=== PATIENT | male | born 1945 | race Caucasian/White ===

== ENCOUNTER 2019-06-17 22:56 | Observation (INO) | payer MEDICARE, OTHER ==
[~2019-06-17] VITALS: Ht 170.2 cm; Wt 73.5 kg
[2019-06-17 23:03] VITALS: BP 122/59
--- NOTE | 2019-06-17 23:05 | NUR ---
Rec'd from EMS by stretcher. Awake and alert. Anxious. Dry, hacky cough noted. Lungs clear anteriorly and laterally. #20 gauge to right AC infusing NS.
--- NOTE | 2019-06-17 23:19 | NUR ---
@ bedside. EKG done.
--- NOTE | 2019-06-17 23:20 | PCM.EKG ---
[facility] Test Date: 2019-06-17 Test Time: 23:17:59 Pat Name: MATEUSZ ESPINOZA Department: Room: 341 Gender: M Class A Truck Driver: HOLLAND : 1945 Requested By: KOLE MARTINEZ Order Number: [id number] Reading MD: Jersey Gillespie Measurements Intervals [place] Rate: 104 P: 67 NC: 138 QRS: 79 QRSD: 69 T: 77 QT: 350 QTc: 461 Interpretive Statements Sinus tachycardia No previous ECG available for comparison Electronically Signed On 07-21-2019 15:44:30 TIRE AND TUBE REPAIRER by Jersey Gillespie Please click the below link to view image of tracing.
[2019-06-17] MEDS ORDERED: NS 1000ML 1,000 ML IV SCH (23:30)
[2019-06-17 23:32] LABS: BASOPHIL % 0.1 % (0.0-0.2); EOSINOPHIL % 0.1 % (0.0-5.0); LYMPHOCYTES # 0.6 10^3/uL (1.0-4.8); LYMPHOCYTES % 3.4 % (24.0-44.0); MEAN CORP HGB 29.8 pg (26-34); MONOCYTES # 0.6 10^3/uL (0.3-0.8); MONOCYTES % 3.3 % (5.0-12.0); NEUTROPHIL # 15.4 10^3/uL (1.8-7.7); NEUTROPHILS % 92.7 % (41.0-85.0); RED CELL DISTRIBUTION WIDTH 14.1 % (11.5-14.5)
[2019-06-17] MEDS ORDERED: NS 1000ML 1,000 ML ONE (23:42)
--- NOTE | 2019-06-17 23:52 | DIREP ---
PROCEDURE:CHEST 2 VIEWS COMPARISON:[facility], CR, XRAY CHEST 2 VWS, 01/26/2019, 04:06 PM. INDICATIONS:Fever, cough, dyspnea, AMS, h/o COPD FINDINGS: LUNGS/PLEURA:No significant pulmonary parenchymal abnormalities. No effusions. VASCULATURE:Normal. Unremarkable pulmonary vasculature. CARDIAC:Normal. No cardiac silhouette abnormality or cardiomegaly. MEDIASTINUM:Calcified aorta. BONES:Mild diffuse degenerative changes. OTHER:Cardiac leads. CONCLUSION:No acute pulmonary process. Dictated by: Lea Lam M.D. on 06/17/2019 at 11:51 PM
--- NOTE | 2019-06-17 23:57 | NUR ---
CRITICAL LAB D-DIMER 1.27 MD MICHELLE NOTIFIED.
[2019-06-17 23:59] LABS: ALANINE AMINOTRANSFERASE(ML) 30 U/L (12-78); ALKALINE PHOSPHATASE 65 U/L (50-136); ASPARTATE AMINO TRANSFERASE 34 U/L (0-35); CALCIUM 8.2 mg/dL (8.4-10.5); CARBON DIOXIDE 26.3 mmol/L (20.0-32); GLUCOSE 107 mg/dL (70-110)
[2019-06-18] MEDS ORDERED: ATIVAN IV STA
[2019-06-18] MEDS ORDERED: DUO 0.5-3(2.5) MG/3 ML IH STA (00:01)
--- NOTE | 2019-06-18 00:04 | ER.PDOC ---
General Chief Complaint: Cough/Congestion Stated Complaint: COUGH,FEVER Time seen by MD: 23:56 Source: patient, family Exam Limitations: no limitations History of Present Illness Initial Comments Patient comes to the ED, brought in via EMS from home where he lives with his . He states that he has COPD, well managed at home w/ long-acting MDIs, steroid, and albuterol rescue usually 2-3 times per day. Noticed over the last day or so that he had increased dyspnea on exertion, we akness, altered mental status, not at his baseline per family. Positive fever, but no chest pressure, heaviness, no nausea, vomiting, diarrhea, constipation, diaphoresis. Chronic dysuria and troubles voiding as he has distal urethral stricture followed by Urology (last visit < 3 mos ago). Denies changes to his medicines, recent travel or antibiotic usage. Denies other somatic complaints. Allergies: Coded Allergies: aspartame (Unverified Allergy, Unknown, 09/29/17) venlafaxine (Unverified Allergy, Unknown, 09/29/17) Past Medical History Medical History: COPD Surgical History: no surgical history Social History Drug Use: none Review of Systems All Other Systems: Reviewed and Negative Physical Exam General Appearance: No Apparent Distress Comments General: uncooperative, anxious, squirming around in bed trying to get off the gurney, requiring constant re-direction HEENT: normocephalic, atraumatic, EOMI, sclerae anicteric without injection, oropharynx : pink and moist Neck: supple, no rigidity noted or appreciated CV: increased rate, regular rhythm, S1, S2, no rubs, clicks, or murmurs appreciated Lungs: end-expiratory wheezes heard all lung mchugh, increased work of breathing, positive retractions, no rhonchi appreciated Abdomen: soft, non-tender, non-distended, normoactive bowel sounds, no rebound, no guarding Back: no focal findings noted Extremities: no clubbing, cyanosis, or edema Skin: warm, dry, intact, cap refill < 2 seconds Neuro: no focal deficits noted, CN 2-12 gross intact, moves all extremities well Psych: anxious/paranoid affect Results/Orders Results/Orders Orders - KOLE MARTINEZ MD Cbc With Auto Diff (06/17/19 23:10) Comprehensive Metabolic Panel (06/17/19 23:10) Creatine Kinase (06/17/19 23:10) Probnp B-Type Ice Cream Dispenser (06/17/19 23:10) Troponin I (06/17/19 23:10) D-Dimer (06/17/19 23:10) Blood Culture (06/17/19 23:10) Ekg-Routine (06/17/19 23:10) Lactic Acid(Ml) (06/17/19 23:10) Cardiac Monitoring (06/17/19 23:10) 0.9 % Sodium Chloride (Ns 1000ml) (06/17/19 23:30) Xr Chest 2v (06/17/19 23:13) 0.9 % Sodium Chloride (Ns 1000ml) (06/17/19 23:42) Lorazepam (Ativan) (06/18/19 00:00) Ceftriaxone Sodium (Rocephin) (06/18/19 00:30) Azithromycin (Zithromax) (06/18/19 00:30) Ipratropium/Albuterol Sulfate (Duo 0.5-3 (06/18/19 00:01) Cont. Monitor O2 (06/18/19 00:02) Oxygen By Face Mask(Notify Rt) (06/18/19 00:02) 0.9 % Sodium Chloride (Ns 100ml) (06/18/19 00:12) Ceftriaxone Sodium (Rocephin) (06/18/19 00:13) 0.9 % Sodium Chloride (Ns 250ml) (06/18/19 00:13) Lorazepam (Ativan) (06/18/19 00:14) Ipratropium/Albuterol Sulfate (Duo 0.5-3 (06/18/19 00:15) Methylprednisolone Sod Succ (Solu-Medrol (06/18/19 00:16) Rt O2 Per Hour (06/18/19 00:18) Influenza A&B (06/18/19 00:29) Vital Signs Date Time Temp Pulse Resp B/P (MAP) Pulse Ox O2 Delivery O2 Flow Rate FiO2 06/18/19 00:25 105 20 92 06/18/19 00:20 105 20 92 06/17/19 23:03 99.2 93 24 06/17/19 23:03 99.2 114 24 122/59 (80) 95 Room Air 12/6/19 22:57 99.2 114 24 95 Administered Medications Medications (Trade) Dose Ordered Sig/Federica Route PRN Reason Start Time Stop Time Status Last Admin Dose Admin Azithromycin 500 mg/Sodium Chloride 250 ml @ 175 mls/hr OT ONCE IV 06/18/19 00:30 06/18/19 01:55 06/18/19 00:38 175 MLS/HR Ceftriaxone Sodium 1 gm/ Sodium Chloride 100 ml @ 100 mls/hr OT ONCE IV 06/18/19 00:30 06/18/19 01:29 06/18/19 00:36 100 MLS/HR Lorazepam (Ativan) 1 mg STAT STAT IV 06/18/19 00:00 06/18/19 00:01 DC 06/18/19 00:27 1 MG Methylprednisolone Sodium Succinate (Solu-Medrol) 125 mg STAT STAT IV 06/18/19 00:16 06/18/19 00:17 DC 06/18/19 00:48 125 MG Sodium Chloride 1,000 ml @ 1,000 mls/hr Q1H IV 06/17/19 23:30 07/17/19 23:29 06/17/19 23:48 1,000 MLS/HR Laboratory Tests Test 06/17/19 23:24 White Blood Count 16.6 10^3/uL (4.5-11.0) H Red Blood Count 3.56 10^6/uL (4.50-5.90) L Hemoglobin 10.6 g/dL (13.9-16.3) L Hematocrit 32.8 % (37.0-53.0) L Mean Corpuscular Volume 92.1 fL (78-100) Mean Corpuscular Hemoglobin 29.8 pg (26-34) Mean Corpuscular Hemoglobin Concent 32.3 g/dL (33-37) L Red Cell Distribution Width 14.1 % (11.5-14.5) Platelet Count 291 10^3/uL (150-400) Mean Platelet Volume 9.5 fL (7.8-11.0) Neutrophils (%) (Auto) 92.7 % (41.0-85.0) *H Lymphocytes (%) (Auto) 3.4 % (24.0-44.0) *L Monocytes (%) (Auto) 3.3 % (5.0-12.0) L Neutrophils # (Auto) 15.4 10^3/uL (1.8-7.7) H Lymphocytes # (Auto) 0.6 10^3/uL (1.0-4.8) L Monocytes # (Auto) 0.6 10^3/uL (0.3-0.8) Absolute Immature Granulocyte (auto 0.06 10^3 u/L (0-2) Immature Granulocytes % 0.40 % (0.00-0.50) Eosinophils % 0.1 % (0.0-5.0) Basophils % 0.1 % (0.0-0.2) Basophils # 0.0 10^3/uL (0.0-0.1) Eosinophil Count 0.0 10^3/uL (0.0-0.2) D-Dimer 1.27 mg/L (0.19-0.49) *H Sodium Level 139 mmol/L (132-145) Potassium Level 3.6 mmol/L (3.6-5.2) Chloride Level 106.0 mmol/L (96-109) Carbon Dioxide Level 26.3 mmol/L (20.0-32) Anion Gap 10.3 Blood Urea Nitrogen 23 mg/dL (7-18) H Creatinine 1.46 mg/dL (0.59-1.40) H Estimated GFR () 57.1 (>/=60) BUN/Creatinine Ratio 15.0 Glucose Level 107 mg/dL (70-110) Lactic Acid Level 1.8 mmol/L (0.50-2.00) Calcium Level 8.2 mg/dL (8.4-10.5) L Total Bilirubin 0.4 mg/dL (0.2-1.0) Aspartate Amino Transferase (AST) 34 U/L (0-35) Alanine Aminotransferase (ALT) 30 U/L (12-78) Alkaline Phosphatase 65 U/L (50-136) Total Creatine Kinase 452 U/L (39-308) H Troponin I < 0.02 ng/mL (0.00-0.05) Pro-B-Type Natriuretic Peptide 87 pg/mL (0-125) Total Protein 6.3 g/dL (6.4-8.2) L Albumin 2.9 g/dL (3.4-5.0) L Globulin 3.4 Progress Progress Patient findings consistent with AECOPD, pneumonia, fever, bacteremia, sepsis, viral syndrome, or other. 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 Baseline labs, EKG, lactic acid, blood cultures obtained and given one litre b olus normal saline. Lactic acid noted to be normal and sent for CXR which also showed no acute abnormalities. Patient given albuterol/ipratropium neb treatment and labs started to show leukocytosis of 16K w/ left shift in the 93% range, suggestive of demargination and possible infection. No recent admissions to hospital and started empirically on ceftriaxone, azithromycin to cover potential CAP. Single dose methylprednisolone and influenza swab obtained. Patient is super anxious requiring much, MUCH re-direction and extensive discussion w/ SO, son in the room and given lorazepam. Per conv w/ Dr Paul Suarez ([place] [facility]), admitted upstairs Obs / Tele for serial nebs, steroids, further evaluation and management. Departure Time of Disposition: 00:36 Disposition: ADMITTED INPATIENT Impression: Primary Impression: COPD exacerbation Additional Impressions: Hypoxemia Failure of outpatient treatment Condition: Stable Referrals: ESSENCE HUNT SHEARING SHED WORKER (PCP) PRIMARY CARE PROVIDER Duration or Time Spent with Pa: 30 Problem Qualifiers KOLE MARTINEZ MD Jun 18, 2019 00:04
[2019-06-18] MEDS ORDERED: NS 100ML 100 ML IV ONE (00:12)
[2019-06-18] MEDS ORDERED: NS 250ML 250 ML IV ONE (00:13)
[2019-06-18] MEDS ORDERED: ROCEPHIN ONE (00:13)
[2019-06-18] MEDS ORDERED: ATIVAN ONE (00:14)
[2019-06-18] MEDS ORDERED: DUO 0.5-3(2.5) MG/3 ML IH ONE (00:15)
[2019-06-18] MEDS ORDERED: SOLU-MEDROL IV STA (00:16)
[2019-06-18] MEDS ORDERED: ZITHROMAX 500 MG in NS 250ML 250 ML IV ONE (00:30)
[2019-06-18] MEDS ORDERED: ROCEPHIN 1 GM in NS 100ML 100 ML IV ONE (00:30)
--- NOTE | 2019-06-18 00:35 | NUR ---
DR NARANJO EDP ON PHONE WITH JATIN FOR ADMISSION
[2019-06-18] MEDS ORDERED: SOLU-MEDROL ONE (00:39)
[2019-06-18] MEDS ORDERED: OMEP20CA13 PO (01:13)
[2019-06-18] MEDS ORDERED: LOSA50TA14 PO (01:13)
[2019-06-18] MEDS ORDERED: CYCL10TA2 PO (01:13)
[2019-06-18] MEDS ORDERED: MELO15TA24 PO (01:13)
[2019-06-18] MEDS ORDERED: BUDE10.2 IH (01:13)
[2019-06-18] MEDS ORDERED: TIOT18CA IH (01:13)
[2019-06-18] MEDS ORDERED: TRAZ-131 PO (01:13)
[2019-06-18] MEDS ORDERED: SIMV40TA20 PO (01:13)
[2019-06-18] MEDS ORDERED: PRAZ2CAP2 PO (01:13)
[2019-06-18] MEDS ORDERED: FLUO20CA8 PO (01:13)
[2019-06-18] MEDS ORDERED: ALBU6.7H8 IH (01:13)
[2019-06-18 01:20] VITALS: BP 114/60
[2019-06-18 04:20] VITALS: BP 121/67
[2019-06-18 05:47] LABS: BAND NEUTROPHILS 6 % (2-6); BASOPHIL 1 % (0-2); EOSINOPHIL 1 % (1-4); LYMPHOCYTE 5 % (25-36); MONOCYTE 3 % (3-9); SEGMENTED NEUTROPHILS 84 % (31-76)
[2019-06-18] MEDS ORDERED: POTASSIUM CHLORIDE PO STA (10:55)
[2019-06-18] MEDS ORDERED: LASIX IV STA (10:55)
[2019-06-18] MEDS ORDERED: SYMBICORT 160-4.5 MCG INHALER IH SCH (11:00)
[2019-06-18 11:27] VITALS: BP 140/75
[2019-06-18] MEDS ORDERED: VENTOLIN IH SCH (13:00)
[2019-06-18] MEDS ORDERED: FURO-80 PO (13:15)
[2019-06-18 14:05] VITALS: BP 140/75
--- NOTE | 2019-06-18 14:20 | HPH ---
ADMIT DATE: 06/18/2019 CHIEF COMPLAINT: Cough. HISTORY OF PRESENT ILLNESS: This is a 73-year-old male with past medical history significant for, 1. COPD. 2. Hypercholesterolemia. 3. Hypertension. 4. Low back pain. 5. Depression, who came to the hospital ER for evaluation due to shortness of breath and cough. The patient stated that his cough has been persistent for the past 2 weeks and he has been given several courses of steroid and he has not been making any progress. The patient also stated that he has been taking a lot of nonsteroidal anti-inflammatory medications to help with his low back pain and he has been having difficulty lying back because of the cough and shortness of breath. The patient was evaluated in the Emergency Room, was given steroid and IV fluids and he was also given Rocephin and Zithromax as a treatment of possibility of COPD exacerbation. The patient was admitted to my service for further evaluation and treatment. PAST MEDICAL HISTORY: Significant for: 1. Posttraumatic stress syndrome/depression. 2. Chronic obstructive pulmonary disease. 3. Low back pain. 4. Hypercholesterolemia. HOME MEDICATIONS: The patient takes the following medications at home: 1. Albuterol 2 puffs q.i.d. 2. Symbicort 1 inhalation b.i.d. 3. Flexeril 1 tablet t.i.d. 4. Fluoxetine 20 mg 1 capsule daily. 5. Losartan 50 mg 1 tablet daily. 6. Omeprazole 20 mg daily. 7. Prazosin 2 mg at bedtime. 8. Simvastatin 40 mg half a tablet daily. 9. Spiriva 1 inhalation daily. 10. Trazodone 100 mg at bedtime. 11. Meloxicam 15 mg daily. SOCIAL HISTORY: The patient lives with his . He does not smoke, but he is an ex-smoker, stopped smoking in 1998. No ETOH abuse or drug use. FAMILY HISTORY: Reviewed and negative. ALLERGY: PATIENT IS ALLERGIC TO __ AND EFFEXOR. REVIEW OF SYSTEMS: Fourteen systems reviewed with the patient, all were negative except for what has been mentioned above. PHYSICAL EXAMINATION: VITAL SIGNS: Temperature 99.2, pulse 114, respiration 24, blood pressure 122/59, O2 sat 95% on room air. HEENT: Pupils reactive. Conjunctivae intact. Sclerae are anicteric. Nares patent. Earlobes intact. Throat clear. NECK: No JVD. No thyromegaly, no bruits, no lymphadenopathy, no masses, no tracheal deviation. HEART: Regular rhythm. No murmur, no gallop. CHEST: Mild bilateral crackles on both lungs. ABDOMEN: Soft. No hepatosplenomegaly, no organomegaly. Bowel sounds active, no tenderness. EXTREMITIES: No cyanosis, clubbing or edema. LABORATORY DATA: CBC: White count 16.6, hemoglobin 10.6, hematocrit 32.8, and platelet 291. Chemistry: Sodium 139, potassium 3.6, chloride 106, CO2 26.3, anion gap 10.3, BUN 23, creatinine 1.46, the calcium 8.2. The influenza A is negative. Influenza B is negative. The chest x-ray is unremarkable. DIAGNOSES: 1. Chronic obstructive pulmonary disease with exacerbation. The patient seems to be having chronic obstructive pulmonary disease, but there is no acute exacerbation. I think it is more fluid retention due to his chronic renal insufficiency. 2. Chronic renal insufficiency, stage 3. 3. Posttraumatic stress disorder. We will continue his medications: 4. Hypercholesterolemia. Continue his medications. MANAGEMENT: I am going to give the patient IV Lasix 1 dose and reevaluate if the patient responds to this IV Lasix, it will confirm the diagnosis of chronic kidney insufficiency, stage 3 and the patient would be considered to have a stable chronic obstructive pulmonary disease without exacerbation and also fluid retention secondary to chronic kidney disease, aggravated by nonsteroidal anti-inflammatory medication and excessive steroid use. PS, the patient also was noticed to have elevated white count, which could be easily attributed to the steroid. We will follow the patient and treat accordingly. LULY STEINER MD DR: LUZ MARIA/suzette JOB# [id number]
[2019-06-18] MEDS ORDERED: ATROVENT IH SCH (15:00)
[2019-06-18] MEDS ORDERED: FLEXERIL PO SCH (15:00)
--- NOTE | 2019-06-18 15:05 | NUR ---
Discharge EDUCATION SESSION HELD WITH PATIENT AND FAMILY PRIOR TO DISCHARGE IN THE FORUM OF VERBAL AND WRITTEN MATERIAL. SESSION INCLUDED FOLLOW UP APPOINTMENT, WHEN TO SEEK IMMEDIATE MEDICAL CARE, PRESCRIPTIONS WELL OTHER DISCHARGE INFORMATION. PATIENT VERBALIZED UNDERSTANDING NO QUESTIONS OR CONCERNS PRESENTED AT THIS TIME. PATIENT LEFT THE UNIT VIA W/C NO ACUTE DISTRESS NOTED AT THIS TIME. PATIENT LEFT VIA PRIVATE AUTO. RELINQUISHED CARE AT THIS TIME.
--- NOTE | 2019-06-18 19:30 | DSH ---
DATE OF DISCHARGE: 06/18/2019 HISTORY OF PRESENT ILLNESS: This was a short admission for observation for this 73-year-old who came to the ER with a 2-week history of shortness of breath and cough. The patient's evaluation revealed stable COPD without exacerbation, and at the same time, the patient was found to have chronic kidney disease, aggravated by the use of nonsteroidal anti-inflammatory medications for his low back pain. The patient was given one dose of Lasix and he diuresed a large amount of urine, and I explained to the the need to monitor his weight and stop taking nonsteroidal anti-inflammatory medications and use the Lasix p.r.n. The patient's symptoms improved instantly after the one dose of Lasix, which included the cough as well as the shortness of breath, and today, the patient is stable, no complaints. PHYSICAL EXAMINATION: VITAL SIGNS: Temperature 98.7, pulse 95, respirations 18, blood pressure 140/75, O2 sat 96% on room air. CARDIOVASCULAR: Regular rhythm. CHEST: Clear. ABDOMEN: Soft. EXTREMITIES: No cyanosis, clubbing, or edema. DISCHARGE INSTRUCTIONS: The patient will be discharged home and follow up with his primary care physician. He was given Lasix 40 mg p.o. to be used as needed. I explained that to the and the son and to the patient himself. LULY STEINER MD DR: LUZ MARIA/suzette JOB# [id number]
[2019-06-18] MEDS ORDERED: MINIPRESS PO SCH (21:00)
[2019-06-18] MEDS ORDERED: DESYREL PO SCH (21:00)
[2019-06-18] MEDS ORDERED: LIPITOR PO SCH (21:00)
[2019-06-19] MEDS ORDERED: PROZAC PO SCH (09:00)
[2019-06-19] MEDS ORDERED: PROTONIX PO SCH (09:00)
[2019-06-19] MEDS ORDERED: COZAAR PO SCH (09:00)
--- NOTE | 2019-06-23 13:07 | NUR ---
ALBUTEROL UNIT DOSE WAS GIVEN INSTEAD OF DUONEBCatia SPEARS SAWSMITH Addendum: 06/23/19 at 1308 by Chayito Yap RRT RT Amended: Links added.
== END 2019-06-18 14:05 | disposition home or self-care (01) ==
LOC: ER 22:56 → EDBD 22:56 → EDBEDREQ 06-18 00:39 → EDBEDREQSVC 06-18 00:39 → MS 06-18 00:39
PROVIDERS: ADMIT Internal Medicine; ATTEND Internal Medicine
DX: J44.1 Chronic obstructive pulmonary disease with (acute) exacerbation (principal); I12.9 Hypertensive chronic kidney disease with stage 1 through stage 4 chronic kidney disease, or unspecified chronic kidney disease; N18.3 Chronic kidney disease, stage 3 (moderate); E78.00 Pure hypercholesterolemia, unspecified; F32.9 Major depressive disorder, single episode, unspecified; N35.919 Unspecified urethral stricture, male, unspecified site; F43.10 Post-traumatic stress disorder, unspecified; R09.02 Hypoxemia; Z87.891 Personal history of nicotine dependence; Z79.899 Other long term (current) drug therapy
CPT/HCPCS: 36415; 71046; 80053; 82550; 83605; 83880; 84484; 85025; 85379; 87040 ×2; 87804 ×2; 93005; 94640 ×2; 96365; 96375; 99284; G0378 ×13; J0456; J0696 ×2; J1940; J2060; J2930; J7030; J7050 ×4; J7613; J7620

== ENCOUNTER 2019-10-02 12:17 | Emergency (ER) | payer OTHER ==
[~2019-10-02] VITALS: Ht 170.2 cm; Wt 73.5 kg
[~2019-10-02 12:17] MED LIST: ALBU6.7H8 IH; BUDE10.2 IH; CYCL10TA2 PO; FLUO20CA23 PO; FURO-80 PO; LOSA50TA14 PO; MELO15TA24 PO; OMEP20CA19 PO; PRAZ2CAP2 PO; SIMV40TA20 PO; TIOT18CA IH; TRAZ-168 PO
[2019-10-02 12:25] VITALS: BP 115/64
[2019-10-02 12:36] VITALS: BP 115/64
[2019-10-02] MEDS ORDERED: TORADOL IM STA (13:00)
[2019-10-02] MEDS ORDERED: DECADRON IM STA (13:00)
--- NOTE | 2019-10-02 13:05 | ER.PDOC ---
General Chief Complaint: Neck/Upper back Pain Stated Complaint: UPPER SPINE PAIN Time seen by MD: 12:50 Source: patient Exam Limitations: no limitations History of Present Illness Initial Comments Pt states [facility] is [facility] and is wanting something for pain today. Timing/Duration: just prior to arrival Prior symptoms/Treatment: Similar symptoms previous Allergies: Coded Allergies: aspartame (Unverified Allergy, Unknown, 09/29/17) venlafaxine (Unverified Allergy, Unknown, 09/29/17) Home Meds Active Scripts Furosemide (LASIX) 40 Mg Tablet, 40 MG PO DAILY24 for 30 Days, 2 Refills Prov:LULY STEINER MD 06/18/19 Reported Medications Losartan Potassium (LOSARTAN POTASSIUM) 50 Mg Tablet, 1 TAB PO DAILY, #30 TAB 5 Refills 06/18/19 Cyclobenzaprine Hcl (FLEXERIL) 10 Mg Tablet, 1 TAB PO TID, #90 TAB 06/18/19 Albuterol Sulfate (PROVENTIL HFA) 6.7 Gm Hfa.aer.ad, 2 PUFF IH QID, #1 INHALER 3 Refills 06/18/19 Tiotropium [place] (SPIRIVA) 18 Mcg Cap.w.dev, 1 CAP IH DAILY, #30 CAP 3 Refills 06/18/19 Budesonide/Formoterol Fumarate (SYMBICORT 160-4.5 MCG INHALER) 10.2 Gm Hfa.aer.ad, 2 PUFF IH BID, #10.6 GRAM 3 Refills 06/18/19 Omeprazole (OMEPRAZOLE) 20 Mg Capsule.dr, 1 CAP PO DAILY, #30 CAP 5 Refills 06/18/19 Simvastatin (SIMVASTATIN) 40 Mg Tablet, 0.5 TAB PO HS, #30 TAB 5 Refills 06/18/19 Fluoxetine Hcl (FLUOXETINE HCL) 20 Mg Capsule, 1 CAP PO DAILY, #90 CAP 1 Refill 06/18/19 Prazosin Hcl (PRAZOSIN HCL) 2 Mg Capsule, 1 CAP PO HS, #30 CAP 2 Refills 06/18/19 Trazodone Hcl (TRAZODONE HCL) 100 Mg Tablet, 1 TAB PO HS, #30 TAB 1 Refill 06/18/19 Past Medical History Medical History: COPD, other Surgical History: tonsillectomy Social History Alcohol Use: none Drug Use: none Review of Systems Constitutional: no symptoms reported EENTM: no symptoms reported Respiratory: no symptoms reported Cardiovascular: no symptoms reported Gastrointestinal: no symptoms reported Genitourinary: no symptoms reported Musculoskeletal: neck pain (this is a chronic condition currently being treated at [facility] Pt unable to make appt due to COVID outbreak) Skin: no symptoms reported Psychiatric/Neurological: no symptoms reported Physical Exam General Appearance: Mild Distress HEENT: PERRL/EOMI, Normal ENT Inspection, TMs Normal, Pharynx Normal Neck: Limited Range of Motion, Muscle Spasm, Painful Range of Motion Cardiovascular/Respiratory: Regular Rate, Rhythm, No M/R/G, Normal Peripheral Pulses, No JVD, Normal Breath Sounds, No Respiratory Distress Gastrointestinal: Normal Bowel Sounds Back: Normal Inspection, No CVA Tenderness Neuro/Psych: Alert, supervisor photostat nml/symmetrical, mood/effect nml, No Motor/Sensory Deficits, Relexes nml Skin: Normal Color, Warm/Dry Results/Orders Results/Orders Orders - MANUEL ELMORE NP Dexamethasone Sodium Phosphate (Decadron (10/02/19 13:00) Ketorolac Tromethamine (Toradol) (10/02/19 13:00) Vital Signs Date Time Temp Pulse Resp B/P (MAP) Pulse Ox O2 Delivery O2 Flow Rate FiO2 10/02/19 12:36 98.5 80 18 115/64 (81) 95 10/02/19 12:36 98.5 80 18 10/02/19 12:25 98.5 80 18 95 Departure Time of Disposition: 13:19 Disposition: 01 HOME, SELF-CARE Impression: Primary Impression: Neck pain Condition: Stable Patient Instructions: RICE - Routine Care for Injuries, [id number] Referrals: ESSENCE HUNT TRUCK DRIVING INSTRUCTOR (PCP) PRIMARY CARE PROVIDER Additional Instructions: Follow up with your Primary Care Provider in the next 1-2 days If symptoms become worse return to the ER Tramadol 50mg Q 4-6 hours for pain Cyclobenzaprine 10mg TID as needed for muscle spasm Duration or Time Spent with Pa: 20 min MANUEL ELMORE NP Oct 02, 2019 13:05
[2019-10-02 13:24] VITALS: BP 116/64
== END 2019-10-02 13:30 | disposition home or self-care (01) ==
LOC: ER 12:17
DX: M54.2 Cervicalgia (principal); J44.9 Chronic obstructive pulmonary disease, unspecified; Z79.899 Other long term (current) drug therapy; Z88.8 Allergy status to other drugs, medicaments and biological substances
CPT/HCPCS: 96372 ×2; 99284; J1100; J1885; 99283; J2550

== ENCOUNTER → 2020-02-09 | Outpatient (CLI) ==
--- NOTE | 2020-02-09 13:05 | DIREP ---
PROCEDURE:CHEST 2 VIEWS COMPARISON:[facility], CR, XRAY CHEST 2 VWS, 06/17/2019, 11:15 PM. [facility], CR, XRAY CHEST 2 VWS, 01/26/2019, 04:06 PM. INDICATIONS:J44.1 COPD FINDINGS: LUNGS/PLEURA:Right lower lobe infiltrate with scattered air bronchograms. Possible trace right pleural effusion. No pneumothorax. Mildly hyperinflated lung mchugh chronic interstitial changes. VASCULATURE:Unremarkable pulmonary vasculature. Calcified aortic arch. CARDIAC:Normal. No cardiac silhouette abnormality or cardiomegaly. MEDIASTINUM:Normal. No visible mass or adenopathy. BONES:Degenerative change without evidence of acute osseus abnormality. OTHER:Negative. CONCLUSION: 1. Right lower lobe infiltrate, concerning for evolving pneumonia. 2. Stable changes related to COPD/emphysema. Dictated by: Anatoly Rebolledo MD on 02/09/2020 at 01:02 PM
== END | disposition home or self-care (01) ==
LOC: LAB 11:40
PROVIDERS: ATTEND Internal Medicine
DX: J44.1 Chronic obstructive pulmonary disease with (acute) exacerbation (principal); J18.9 Pneumonia, unspecified organism
CPT/HCPCS: 71046

== ENCOUNTER 2020-05-16 17:28 | Emergency (ER) | payer OTHER ==
[~2020-05-16] VITALS: Ht 167.6 cm; Wt 70.3 kg
[2020-05-16 17:46] VITALS: BP 143/59
--- NOTE | 2020-05-16 17:51 | NUR ---
ARRIVAL PATIENT ARRIVED TO ED6 AMBULATORY, C/O OF URINARY RETENTION FOR THE PAST COUPLE OF DAYS, STATES PATIENT HAS BEEN CONSTIPATED AND SHE DID GIVE HIM A STOOL SOFTNER, DECIDED TO BRING HIM TO THE ED FOR EVAL.
--- NOTE | 2020-05-16 18:05 | ER.PDOC ---
General Chief Complaint: Male Stated Complaint: MALE Time seen by MD: 17:57 Source: patient, family ( relates most history) Exam Limitations: clinical condition (Pt has PTSD and is a poor historian) History of Present Illness Initial Comments Patient c/o difficulty voiding x 3-4 days with only dribbling urination. When he does void, it smells strongly. He denies hematuria or fever. Timing/Duration: other (3-4 days) Severity/Quality: moderate, fullness (urge to void, but can only void dribbles) Location: suprapubic Associated Symptoms: Urgency, Hesitancy, Small amounts Sexual History: Non-contributory Prior symptoms/Treatment: Similar symptoms previous (longstanding history of intermittent recurrent urethral stricture--last cleared just before his neck surgery in February) Allergies: Coded Allergies: aspartame (Unverified Allergy, Unknown, 09/29/17) venlafaxine (Unverified Allergy, Unknown, 09/29/17) Home Meds Active Scripts Furosemide (LASIX) 40 Mg Tablet, 40 MG PO DAILY24 for 30 Days, 2 Refills Prov:LULY STEINER MD 06/18/19 Reported Medications Losartan Potassium (LOSARTAN POTASSIUM) 50 Mg Tablet, 1 TAB PO DAILY, #30 TAB 5 Refills 06/18/19 Cyclobenzaprine Hcl (FLEXERIL) 10 Mg Tablet, 1 TAB PO TID, #90 TAB 06/18/19 Albuterol Sulfate (PROVENTIL HFA) 6.7 Gm Hfa.aer.ad, 2 PUFF IH QID, #1 INHALER 3 Refills 06/18/19 Tiotropium [place] (SPIRIVA) 18 Mcg Cap.w.dev, 1 CAP IH DAILY, #30 CAP 3 Refills 06/18/19 Budesonide/Formoterol Fumarate (SYMBICORT 160-4.5 MCG INHALER) 10.2 Gm Hfa.aer.ad, 2 PUFF IH BID, #10.6 GRAM 3 Refills 06/18/19 Omeprazole (OMEPRAZOLE) 20 Mg Capsule.dr, 1 CAP PO DAILY, #30 CAP 5 Refills 06/18/19 Simvastatin (SIMVASTATIN) 40 Mg Tablet, 0.5 TAB PO HS, #30 TAB 5 Refills 06/18/19 Fluoxetine Hcl (FLUOXETINE HCL) 20 Mg Capsule, 1 CAP PO DAILY, #90 CAP 1 Refill 06/18/19 Prazosin Hcl (PRAZOSIN HCL) 2 Mg Capsule, 1 CAP PO HS, #30 CAP 2 Refills 06/18/19 Trazodone Hcl (TRAZODONE HCL) 100 Mg Tablet, 1 TAB PO HS, #30 TAB 1 Refill 06/18/19 Past Medical History Medical History: GERD, hypertension, other (urethral stricture, chronic, recurrent) Surgical History: neck Family History Significant Family History: no pertinent family hx Social History Smoking: non-smoker Alcohol Use: none Drug Use: none Review of Systems Constitutional: no symptoms reported EENTM: no symptoms reported Respiratory: no symptoms reported Cardiovascular: no symptoms reported Gastrointestinal: no symptoms reported Genitourinary: frequency, urgency, other (dribbles small amounts) Musculoskeletal: no symptoms reported Skin: no symptoms reported Psychiatric/Neurological: no symptoms reported All Other Systems: Reviewed and Negative Physical Exam General Appearance: No Apparent Distress, WD/WN Cardiovascular/Respiratory: Regular Rate, Rhythm, Normal Breath Sounds, No Respiratory Distress Abdomen: Soft, Tenderness (suprapubic), Distended Bladder Extremities: Non-Tender, No Pedal Edema, No Calf Tenderness Neurologic/Psychiatric: Alert, Normal Mood/Affect, Oriented x 3 Skin: Normal Color, Warm/Dry Results/Orders Results/Orders Orders - ETHEL ESPINOSA DO Cbc With Auto Diff (05/16/20 18:05) Comprehensive Metabolic Panel (05/16/20 18:05) Urinalysis (05/16/20 18:05) Saline Lock (05/16/20 18:05) Bladder Scan (05/16/20 18:05) Ceftriaxone Sodium (Rocephin) (05/16/20 18:43) Blood Culture (05/16/20 18:43) 0.9 % Sodium Chloride (Ns 1000ml) (05/16/20 18:46) Urine Culture (05/16/20 18:05) 0.9 % Sodium Chloride (Ns 100ml) (05/16/20 19:21) 0.9 % Sodium Chloride (Ns 1000ml) (05/16/20 19:21) Ceftriaxone Sodium (Rocephin) (05/16/20 19:22) Lactic Acid(Ml) (05/16/20 19:54) Vital Signs Date Time Temp Pulse Resp B/P (MAP) Pulse Ox O2 Delivery O2 Flow Rate FiO2 05/16/20 17:46 98.4 113 20 95 05/16/20 17:46 98.4 113 20 143/59 (87) 95 Room Air 05/16/20 17:46 98.4 113 20 Administered Medications Medications (Trade) Dose Ordered Sig/Federica Route PRN Reason Start Time Stop Time Status Last Admin Dose Admin Ceftriaxone Sodium 1000 mg/ Sodium Chloride 100 ml @ 100 mls/hr STAT STAT IV 05/16/20 18:43 05/16/20 19:42 DC 05/16/20 19:29 100 MLS/HR Sodium Chloride 1,000 ml @ 0 mls/hr Q0M STAT IV 05/16/20 18:46 05/16/20 18:48 DC 05/16/20 19:29 0 MLS/HR Laboratory Tests Test 05/16/20 18:15 05/16/20 18:30 05/16/20 20:20 White Blood Count 24.1 10^3/uL (4.5-11.0) H Red Blood Count 3.06 10^6/uL (4.50-5.90) L Hemoglobin 7.9 g/dL (13.9-16.3) L Hematocrit 25.3 % (37.0-53.0) L Mean Corpuscular Volume 82.7 fL (78-100) Mean Corpuscular Hemoglobin 25.8 pg (26-34) L Mean Corpuscular Hemoglobin Concent 31.2 g/dL (33-36.5) L Red Cell Distribution Width 16.1 % (11.5-14.5) H Platelet Count 291 10^3/uL (150-400) Mean Platelet Volume 9.7 fL (7.8-11.0) Neutrophils (%) (Auto) 92.9 % (41.0-85.0) *H Lymphocytes (%) (Auto) 3.6 % (24.0-44.0) *L Monocytes (%) (Auto) 2.8 % (5.0-12.0) L Neutrophils # (Auto) 22.4 10^3/uL (1.8-7.7) H Lymphocytes # (Auto) 0.88 10^3/uL1 (1.0-4.8) L Monocytes # (Auto) 0.7 10^3/uL (0.3-0.8) Absolute Immature Granulocyte (auto 0.12 10^3 u/L (0-2) Absolute Eosinophils (auto) 0.0 10^3/uL (0.0-0.2) Immature Granulocytes % 0.50 % (0.00-0.50) Eosinophils % 0.0 % (0.0-5.0) Basophils % 0.2 % (0.0-0.2) Basophils # 0.0 10^3/uL (0.0-0.1) Sodium Level 136 mmol/L (132-145) Potassium Level 3.7 mmol/L (3.6-5.2) Chloride Level 101.0 mmol/L (96-109) Carbon Dioxide Level 24.4 mmol/L (20.0-32) Anion Gap 14.3 Blood Urea Nitrogen 18 mg/dL (7-18) Creatinine 1.61 mg/dL (0.59-1.40) H Estimated GFR () 50.9 (>/=60) Est GFR (CKD-EPI)(Non-Afr [place]) 42.0 (>/=60) BUN/Creatinine Ratio 11.0 Glucose Level 149 mg/dL (70-110) H Calcium Level 8.8 mg/dL (8.4-10.5) Total Bilirubin 0.7 mg/dL (0.2-1.0) Aspartate Amino Transferase (AST) 21 U/L (0-35) Alanine Aminotransferase (ALT) 15 U/L (12-78) Alkaline Phosphatase 66 U/L (50-136) Total Protein 7.0 g/dL (6.4-8.2) Albumin 3.4 g/dL (3.4-5.0) Globulin 3.6 Albumin/Globulin Ratio 0.944 Urine Collection Type VOID Urine Color YELLOW (YELLOW) Urine Appearance CLOUDY (CLEAR) H Urine Bilirubin NEGATIVE MG/DL (NEGATIVE) Urine Ketones 15 mg/dL (NEGATIVE) H Urine Specific [place] 1.020 (1.005-1.035) Urine pH 7.5 (5.0-6.0) Urine Protein 100 mg/dL (NEGATIVE) H Urine Urobilinogen NORMAL (NEGATIVE) Urine Nitrate POSITIVE (NEGATAIVE) H Urine Leukocyte Esterase SMALL (NEGATIVE) Urine Blood TRACE (NEGATIVE) Urine RBC 0-2 RBC/HPF (NONE SEEN) Urine WBC 5-10 WBC/HPF (0-2) H Urine Squamous Epithelial Cells FEW #/HPF (FEW) Urine Bacteria MANY (NONE SEEN) H Urine Glucose NORMAL (NEGATIVE) Lactic Acid Level 0.8 mmol/L (0.5-1.9) Progress Progress patient voided 40 cc urine followed by bladder scan that saw 44ccs maximum; WBC is 24K, predominantly neutrophils; blood cultures ordered, followed by rocephin 1 gm IV; UA sees [place] infection; lactate negative; patient wishes to discharge home with oral antibiotics; we discussed returning if he is worse, has fever, or for any other concerns. ER DEPART Departure Time of Disposition: 20:55 Disposition: 01 HOME, SELF-CARE Impression: Primary Impression: UTI (urinary tract infection) Additional Impressions: Leukocytosis Bladder spasms Condition: Improved Patient Instructions: Urinary Tract Infection Referrals: ESSENCE [facility] (PCP) PRIMARY CARE PROVIDER Additional Instructions: Follow up with your doctor next week for reevaluation. Return to ER if symptoms worsen, or for any emergent concerns. Take antibiotics as prescribed until all gone. Take OTC AZO per package directions as needed for bladder spasms. Duration or Time Spent with Pa: 20 min Problem Qualifiers Primary Impression: UTI (urinary tract infection) Urinary tract infection type: acute cystitis Hematuria presence: without hematuria Qualified Codes: N30.00 - Acute cystitis without hematuria Additional Impressions: Leukocytosis Leukocytosis type: bandemia Qualified Codes: D72.825 - Bandemia ETHEL ESPINOSA DO May 16, 2020 18:05
[2020-05-16 18:19] LABS: BASOPHIL % 0.2 % (0.0-0.2); LYMPHOCYTES # 0.88 10^3/uL1 (1.0-4.8); LYMPHOCYTES % 3.6 % (24.0-44.0); MEAN CORP HGB 25.8 pg (26-34); MONOCYTES # 0.7 10^3/uL (0.3-0.8); MONOCYTES % 2.8 % (5.0-12.0); NEUTROPHIL # 22.4 10^3/uL (1.8-7.7); NEUTROPHILS % 92.9 % (41.0-85.0); PLATELET COUNT 291 10^3/uL (150-400); RED CELL DISTRIBUTION WIDTH 16.1 % (11.5-14.5)
[2020-05-16 18:37] LABS: CALCIUM 8.8 mg/dL (8.4-10.5); CARBON DIOXIDE 24.4 mmol/L (20.0-32)
[2020-05-16] MEDS ORDERED: ROCEPHIN 1,000 MG in NS 100ML 100 ML IV STA (18:43)
[2020-05-16] MEDS ORDERED: NS 1000ML 1,000 ML STA (18:46)
[2020-05-16 19:12] LABS: APPEARANCE,URINE CLOUDY (CLEAR); BILIRUBIN,URINE NEGATIVE (NEGATIVE); UA COLOR YELLOW (YELLOW); UROBILINOGEN,URINE NORMAL (NEGATIVE)
[2020-05-16] MEDS ORDERED: NS 1000ML 1,000 ML ONE (19:21)
[2020-05-16] MEDS ORDERED: NS 100ML 100 ML IV ONE (19:21)
[2020-05-16] MEDS ORDERED: ROCEPHIN ONE (19:22)
[2020-05-16] MEDS ORDERED: PHENAZOPYRIDINE HCL PO STA (20:55)
[2020-05-16 21:00] LABS: LYMPHOCYTE 3 % (25-36); MONOCYTE 2 % (3-9); SEGMENTED NEUTROPHILS 95 % (31-76)
== END 2020-05-16 21:49 | disposition home or self-care (01) ==
LOC: ER 17:28
DX: N30.01 Acute cystitis with hematuria (principal); D72.825 Bandemia; I10 Essential (primary) hypertension; N32.89 Other specified disorders of bladder; Z79.51 Long term (current) use of inhaled steroids; Z79.899 Other long term (current) drug therapy
CPT/HCPCS: 36415; 80053; 81000; 83605; 85025; 87040 ×2; 87077; 87086; 87186; 96365; 99284; J0696 ×2; J7030; J7050 ×2

== ENCOUNTER 2020-07-12 11:44 | Emergency (ER) | payer MEDICARE, OTHER ==
--- NOTE | 2020-07-12 11:48 | NUR ---
ARRIVED PT IN W/C TO ROOM 2 C/C SOB FOR OVER 1 WEEK. PT WEAK, SYNCOPAL EPISODE IN WAITING ROOM PT HAS COPD AND IS ON HOME O2 AT 2LITERS. PT 79 ON ROOM AIR PT PLACED ON 2LITERS OF 02 AND O2 SATS ARE NOW 91%. PT AFEBRILE. WARM DRY
--- NOTE | 2020-07-12 12:12 | PCM.EKG ---
[facility] Test Date: 2020-07-12 Test Time: 12:03:07 Pat Name: MATEUSZ ESPINOZA Department: Room: Gender: M Pivot Maker: CHARO : 1945 Requested By: ASHLIE ALBA Order Number: [id number] Reading MD: Measurements Intervals [place] Rate: 100 P: 35 AL: 129 QRS: 68 QRSD: 66 T: 42 QT: 366 QTc: 473 Interpretive Statements Sinus tachycardia Abnormal R-wave progression, early transition Compared to ECG 06/17/2019 23:17:59 No significant changes Please click the below link to view image of tracing.
[2020-07-12 12:18] LABS: ABG PCO2 29.2 mmHg (35.0-45.0); ABG PH 7.512 (7.350-7.450); BE(B) 0.3 mmol/L (-2.0-2.0); HCO3act 22.9 mmol/L (22.0-26.0); pO2 42.9 mmHg (80.0-100.0)
[2020-07-12 12:26] LABS: BASOPHIL % 0.4 % (0.0-0.2); EOSINOPHIL # 0.2 10^3/uL (0.0-0.2); EOSINOPHIL % 1.8 % (0.0-5.0); LYMPHOCYTES # 0.75 10^3/uL1 (1.0-4.8); LYMPHOCYTES % 9.2 % (24.0-44.0); MEAN CORP HGB 23.2 pg (26-34); MONOCYTES # 0.3 10^3/uL (0.3-0.8); NEUTROPHIL # 6.9 10^3/uL (1.8-7.7); NEUTROPHILS % 84.2 % (41.0-85.0); PLATELET COUNT 331 10^3/uL (150-400); RED CELL DISTRIBUTION WIDTH 17.8 % (11.5-14.5)
[2020-07-12 12:32] VITALS: BP 134/59
--- NOTE | 2020-07-12 12:48 | NUR ---
addy 3.64 aware Addendum: 07/12/20 at [address]morgan montes de oca
[2020-07-12 12:56] LABS: ALANINE AMINOTRANSFERASE(ML) 23 U/L (12-78); ALKALINE PHOSPHATASE 55 U/L (50-136); ASPARTATE AMINO TRANSFERASE 27 U/L (0-35); CALCIUM 8.5 mg/dL (8.4-10.5); CARBON DIOXIDE 27.3 mmol/L (20.0-32); GLUCOSE 149 mg/dL (70-110)
--- NOTE | 2020-07-12 13:01 | DIREP ---
PROCEDURE:CHEST 1 VIEW COMPARISON:[facility], CR, XRAY CHEST 2 VWS, 02/09/2020, 11:56 AM. INDICATIONS:chest pain FINDINGS: LUNGS/PLEURA:Note is made of opacity in the region of the left lower lobe in the lingula adjacent to the left costophrenic angle. Differential diagnosis includes an airspace consolidation or viral infiltrate. The right lung is grossly clear. EKG leads identified. Elevated left hemidiaphragm. VASCULATURE:Normal. Unremarkable pulmonary vasculature. In the visualized portions of the aerated lung, no CHF or pulmonary edema is seen. No effusions identified. No cavitation is seen. CARDIAC:Normal. No cardiac silhouette abnormality or cardiomegaly. MEDIASTINUM:Normal. No visible mass or adenopathy. BONES:Normal. No fracture or visible bony lesion. Cervical spine fusion noted. OTHER:Negative. CONCLUSION:Opacities in the left lower lobe in the region of the lingula and the left costophrenic angle likely represent an infiltrate. Elevated left hemidiaphragm. No CHF or effusions are seen. No cavitation is identified. Dictated by: Ravi Rebolledo MD on 07/12/2020 at 12:56 PM
--- NOTE | 2020-07-12 13:59 | NUR ---
CTA THIS NURSE ASKED DR ALBA ABOUT ORDERS FOR CTA D/T INCREASED D DIMER. DR ALBA STATES HE WANTS TO WAIT UNTIL COVID RESULT IS BACK D/T PT NOT MEETING ANY WELLS CRITIERIA.
--- NOTE | 2020-07-12 14:37 | ER.PDOC ---
General Chief Complaint: Dyspnea/Respdistress Stated Complaint: LOW OXYGEN/COUGH Time seen by MD: 11:48 Source: patient Exam Limitations: no limitations History of Present Illness Initial Comments Pt feels like he has had a flare of his COPD and has not been feeling good for the "past few days". He feels more SOB with exertion for past 2 days. He denies fevers/chills Pulse ox was low at home. He has an oxygen concentrator at home.. Severity: moderate Activities at Onset: rest Prior Episodes/Possible Cause: frequent episodes Modifying Factors: improves with activity, improves with albuterol inhaler, im proves with albuterol nebulizer Associated Symptoms: cough Prior symptoms/Treatment: Similar symptoms previous Allergies: Coded Allergies: aspartame (Unverified Allergy, Unknown, 09/29/17) venlafaxine (Unverified Allergy, Unknown, 09/29/17) Home Meds Active Scripts Furosemide (LASIX) 40 Mg Tablet, 40 MG PO DAILY24 for 30 Days, 2 Refills Prov:LULY STEINER MD 06/18/19 Reported Medications Losartan Potassium (LOSARTAN POTASSIUM) 50 Mg Tablet, 1 TAB PO DAILY, #30 TAB 5 Refills 06/18/19 Cyclobenzaprine Hcl (FLEXERIL) 10 Mg Tablet, 1 TAB PO TID, #90 TAB 06/18/19 Albuterol Sulfate (PROVENTIL HFA) 6.7 Gm Hfa.aer.ad, 2 PUFF IH QID, #1 INHALER 3 Refills 06/18/19 Tiotropium [place] (SPIRIVA) 18 Mcg Cap.w.dev, 1 CAP IH DAILY, #30 CAP 3 Refills 06/18/19 Budesonide/Formoterol Fumarate (SYMBICORT 160-4.5 MCG INHALER) 10.2 Gm Hfa.aer.ad, 2 PUFF IH BID, #10.6 GRAM 3 Refills 06/18/19 Omeprazole (OMEPRAZOLE) 20 Mg Capsule.dr, 1 CAP PO DAILY, #30 CAP 5 Refills 06/18/19 Simvastatin (SIMVASTATIN) 40 Mg Tablet, 0.5 TAB PO HS, #30 TAB 5 Refills 06/18/19 Fluoxetine Hcl (FLUOXETINE HCL) 20 Mg Capsule, 1 CAP PO DAILY, #90 CAP 1 Refill 06/18/19 Prazosin Hcl (PRAZOSIN HCL) 2 Mg Capsule, 1 CAP PO HS, #30 CAP 2 Refills 06/18/19 Trazodone Hcl (TRAZODONE HCL) 100 Mg Tablet, 1 TAB PO HS, #30 TAB 1 Refill 06/18/19 Past Medical History Medical History: COPD, hypertension Surgical History: neck Family History Significant Family History: no pertinent family hx Social History Smoking: quit greater than 1 year Alcohol Use: none Drug Use: none Review of Systems Respiratory: see HPI All Other Systems: Reviewed and Negative Physical Exam General Appearance: No Apparent Distress, WD/WN HEENT: PERRL/EOMI, Normal ENT Inspection, TMs Normal, Pharynx Normal Neck: Non-Tender, Full Range of Motion, Supple, Normal Inspection Respiratory: chest non-tender, normal breath sounds, no respiratory distress, crackles, wheezing (faint wheezing and crackles in left side) Cardiovascular: Normal Peripheral Pulses, Regular Rate, Rhythm, No Edema, No Gallop, No JVD, No Murmur Gastrointestinal: Normal Bowel Sounds, No Organomegaly, No Pulsatile Mass, Non Tender, Soft Extremities: Normal Range of Motion, Non-Tender, Normal Inspection, No Pedal Edema, No Calf Tenderness, Normal Capillary Refill 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 (07/12/20 12:09) Helicobacter Pylori (07/12/20 12:09) D-Dimer (07/12/20 12:09) Xr Chest 1v (07/12/20 12:09) Ekg-Routine (07/12/20 12:09) Arterial Blood Gas (07/12/20 12:09) Influenza A&B (07/12/20 13:09) Covid19 Antigen Tracey Lincoln (07/12/20 13:09) Vital Signs Date Time Temp Pulse Resp B/P (MAP) Pulse Ox O2 Delivery O2 Flow Rate FiO2 07/12/20 12:32 98.5 88 16 79 07/12/20 12:32 98.5 88 16 79 Laboratory Tests Test 07/12/20 12:00 07/12/20 12:06 White Blood Count 8.2 10^3/uL (4.5-11.0) Red Blood Count 3.57 10^6/uL (4.50-5.90) L Hemoglobin 8.3 g/dL (13.9-16.3) L Hematocrit 27.3 % (37.0-53.0) L Mean Corpuscular Volume 76.5 fL (78-100) L Mean Corpuscular Hemoglobin 23.2 pg (26-34) L Mean Corpuscular Hemoglobin Concent 30.4 g/dL (33-36.5) L Red Cell Distribution Width 17.8 % (11.5-14.5) H Platelet Count 331 10^3/uL (150-400) Mean Platelet Volume 10.1 fL (7.8-11.0) Neutrophils (%) (Auto) 84.2 % (41.0-85.0) Lymphocytes (%) (Auto) 9.2 % (24.0-44.0) L Monocytes (%) (Auto) 4.0 % (5.0-12.0) L Neutrophils # (Auto) 6.9 10^3/uL (1.8-7.7) Lymphocytes # (Auto) 0.75 10^3/uL1 (1.0-4.8) L Monocytes # (Auto) 0.3 10^3/uL (0.3-0.8) Absolute Immature Granulocyte (auto 0.03 10^3 u/L (0-2) Absolute Eosinophils (auto) 0.2 10^3/uL (0.0-0.2) Immature Granulocytes % 0.40 % (0.00-0.50) Eosinophils % 1.8 % (0.0-5.0) Basophils % 0.4 % (0.0-0.2) H Basophils # 0.0 10^3/uL (0.0-0.1) Prothrombin Time 11.5 SEC (9.3-11.3) H Prothrombin Time INR (Non-Therap) 1.1 Activated Partial Thromboplast Time 26.0 SEC (24.67-30.72) D-Dimer 3.64 mg/L (0.19-0.49) *H Sodium Level 138 mmol/L (132-145) Potassium Level 3.8 mmol/L (3.6-5.2) Chloride Level 102.0 mmol/L (96-109) Carbon Dioxide Level 27.3 mmol/L (20.0-32) Anion Gap 12.5 Blood Urea Nitrogen 23 mg/dL (7-18) H Creatinine 1.33 mg/dL (0.59-1.40) Estimated GFR () 63.4 (>/=60) Est GFR (CKD-EPI)(Non-Afr [place]) 52.4 (>/=60) BUN/Creatinine Ratio 17.0 Glucose Level 149 mg/dL (70-110) H Calcium Level 8.5 mg/dL (8.4-10.5) Total Bilirubin 0.4 mg/dL (0.2-1.0) Aspartate Amino Transferase (AST) 27 U/L (0-35) Alanine Aminotransferase (ALT) 23 U/L (12-78) Alkaline Phosphatase 55 U/L (50-136) Total Creatine Kinase 116 U/L (39-308) Creatine Kinase MB 0.8 ng/mL (0.5-3.6) Troponin I < 0.02 ng/mL (0.00-0.05) Pro-B-Type Natriuretic Peptide 259 pg/mL (0-450) Total Protein 6.9 g/dL (6.4-8.2) Albumin 2.9 g/dL (3.4-5.0) L Globulin 4.0 Albumin/Globulin Ratio 0.725 Helicobacter pylori Screen NEGATIVE (NEGATIVE) Influenza Type A Antigen NEGATIVE (NEG) Influenza B Immunofluorescence NEGATIVE (NEG) SARS-CoV-2 Antigen (Rapid) NEGATIVE (NEGATIVE) Blood Gas Sample Site RT RADIAL ARTERY Blood pH 7.512 (7.350-7.450) Blood Gas PCO2 29.2 mmHg (35.0-45.0) L Blood Gas PO2 42.9 mmHg (80.0-100.0) L Blood Gas HCO3 22.9 mmol/L (22.0-26.0) Blood Gas Base Excess 0.3 mmol/L (-2.0-2.0) Alpesh Test POSITIVE Arterial Blood Oxygen Saturation 79.4 % (94.0-97.00) L Deoxyhemoglobin 20.5 % (0.0-5.0) H Carboxyhemoglobin 0.4 % (0.0-3.9) Methemoglobin 0.3 % (0.00-5.0) Total Hemoglobin 8.7 % (12.0-17.8) L Total Oxygen Concentration 9.7 % (13.5-17.5) L Oxygen Delivery Method ROOM AIR FiO2 21 % (20-101) Total Carbon Dioxide 23.8 mmol/L (23-27) Progress Progress Pt's labs show a chronic anemia that appears to be an iron def anemia. NML WBC count.Chem are all OK CXR shows a infiltrate of the left lingula. D-Dimer is elevated. However, he is Covid neg and his Well's criteria is "0". ABG shows chronic hypoxia with acute resp alkalosis. However pt is not in extremes and wants to go home. ER DEPART Departure Time of Disposition: 14:48 Disposition: 01 HOME, SELF-CARE Impression: Primary Impression: COPD exacerbation Additional Impression: Pneumonia Condition: Stable Referrals: EWA BENDER MD (PCP) PRIMARY CARE PROVIDER Comments Doxycycline 100mg bid x 10 days, Z-Pac use as directed. Duration or Time Spent with Pa: 25m Problem Qualifiers ASHLIE ALBA MD Jul 12, 2020 14:37
[2020-07-12 14:53] VITALS: BP 125/56
== END 2020-07-12 14:58 | disposition home or self-care (01) ==
LOC: ER 11:44
DX: J44.0 Chronic obstructive pulmonary disease with (acute) lower respiratory infection (principal); J18.9 Pneumonia, unspecified organism; Z20.828 Contact with and (suspected) exposure to other viral communicable diseases
CPT/HCPCS: 36415; 36600; 71045; 80053; 82550; 82553; 82803; 83880; 84484; 85025; 85379; 85610; 85730; 86677; 87426; 87804; 93005; 99285

== ENCOUNTER → 2020-07-24 | Outpatient (CLI) | payer OTHER ==
[2020-07-24 14:46] LABS: BASOPHIL # 0.1 10^3/uL (0.0-0.1); BASOPHIL % 0.8 % (0.0-0.2); EOSINOPHIL # 0.1 10^3/uL (0.0-0.2); EOSINOPHIL % 1.5 % (0.0-5.0); LYMPHOCYTES # 0.98 10^3/uL1 (1.0-4.8); LYMPHOCYTES % 13.5 % (24.0-44.0); MEAN CORP HGB 23.3 pg (26-34); MONOCYTES # 0.4 10^3/uL (0.3-0.8); MONOCYTES % 5.6 % (5.0-12.0); NEUTROPHIL # 5.7 10^3/uL (1.8-7.7); NEUTROPHILS % 78.3 % (41.0-85.0); PLATELET COUNT 461 10^3/uL (150-400); RED CELL DISTRIBUTION WIDTH 18.6 % (11.5-14.5)
[2020-07-24 16:27] LABS: CALCIUM 9.3 mg/dL (8.4-10.5)
== END | disposition home or self-care (01) ==
LOC: LAB 14:30
PROVIDERS: ATTEND Internal Medicine
DX: I10 Essential (primary) hypertension (principal); E53.8 Deficiency of other specified B group vitamins; R26.89 Other abnormalities of gait and mobility; Z79.899 Other long term (current) drug therapy
CPT/HCPCS: 36415; 80053; 80061; 82306; 82607; 82746; 83036; 84439; 84443; 85025

== ENCOUNTER → 2021-12-19 | Outpatient (CLI) | payer OTHER ==
[~2021-12-19] MED LIST changes: +CYCL10TA19 PO; -CYCL10TA2 PO; -FLUO20CA23 PO; +FLUO20CA25 PO
--- NOTE | 2021-12-19 18:35 | DIREP ---
PROCEDURE:XRAY SHOULDER MIN 2 VWS-RT COMPARISON:None. INDICATIONS:M25.511 PAIN IN RIGHT SHOULDER FINDINGS: Two views of the right shoulder. No fracture or dislocation identified. Acromioclavicular and coracoclavicular distances are not widened. There is a corticated 1.1 cm fragment noted superiorly along the superior margin of the acromioclavicular joint at the lateral clavicle which may be degenerative or related to previous injury. Hardware in the cervical spine, not assessed. No radiopaque foreign body. CONCLUSION:Fragment at the superior aspect of the acromioclavicular joint may be related to previous injury or degenerative. The acromioclavicular joint is otherwise not widened. Dictated by: Ya Hogan MD on 12/19/2021 at 06:31 PM
== END | disposition home or self-care (01) ==
LOC: RAD 16:02
PROVIDERS: ATTEND Internal Medicine
DX: M25.511 Pain in right shoulder (principal)
CPT/HCPCS: 73030-RT